=== PATIENT | female | born 1945 | race Caucasian/White ===

== ENCOUNTER 2017-11-12 02:40 | Outpatient (CLI) | payer MEDICARE, OTHER ==
[~2017-11-12 02:40] MED LIST: CHOL2000 PO; DOXA2TAB2 PO; EZET1TAB29 PO; FISH1CAP15 PO; GLYB-97 PO; LACT1CAP65 PO; LANTUS SQ; LEVO100T9 PO; LOSA100T28 PO; METO25TA6 PO; PIOG45TA5 PO; SITA100T15 PO
== END 2017-11-12 23:59 | disposition home or self-care (01) ==
LOC: DIABETIC 02:40
PROVIDERS: ATTEND Specialist
DX: E11.8 Type 2 diabetes mellitus with unspecified complications (principal)

== ENCOUNTER 2018-02-24 00:25 | Outpatient (CLI) | payer MEDICARE, OTHER | END 2018-02-24 23:59 | disposition home or self-care (01) | LOC: DIABETIC 00:25 | PROVIDERS: ATTEND Specialist | DX: E11.9 Type 2 diabetes mellitus without complications (principal); I10 Essential (primary) hypertension; J45.909 Unspecified asthma, uncomplicated | CPT/HCPCS: G0108 ==

== ENCOUNTER 2018-07-14 00:35 | Outpatient (CLI) | payer MEDICARE, OTHER ==
[~2018-07-14 00:35] MED LIST changes: +LOSA100T15 PO; -LOSA100T28 PO
== END 2018-07-14 23:59 | disposition home or self-care (01) ==
LOC: DIABETIC 00:35
PROVIDERS: ATTEND Specialist
DX: E11.9 Type 2 diabetes mellitus without complications (principal); I10 Essential (primary) hypertension; J45.909 Unspecified asthma, uncomplicated; Z79.4 Long term (current) use of insulin; Z79.84 Long term (current) use of oral hypoglycemic drugs; Z79.899 Other long term (current) drug therapy; Z98.51 Tubal ligation status
CPT/HCPCS: G0108

== ENCOUNTER 2018-10-13 00:20 | Outpatient (CLI) | payer MEDICARE, OTHER ==
[~2018-10-13 00:20] MED LIST changes: -LOSA100T15 PO; +LOSA100T57 PO
== END 2018-10-13 23:59 | disposition home or self-care (01) ==
LOC: DIABETIC 00:20
PROVIDERS: ATTEND Specialist
DX: E11.65 Type 2 diabetes mellitus with hyperglycemia (principal); I10 Essential (primary) hypertension; J45.909 Unspecified asthma, uncomplicated; Z79.4 Long term (current) use of insulin; Z79.84 Long term (current) use of oral hypoglycemic drugs
CPT/HCPCS: G0108

== ENCOUNTER 2019-01-06 01:59 | Outpatient (CLI) | payer MEDICARE, OTHER | END 2019-01-06 23:59 | disposition home or self-care (01) | LOC: DIABETIC 01:59 | PROVIDERS: ATTEND Family Medicine | DX: E11.65 Type 2 diabetes mellitus with hyperglycemia (principal); I10 Essential (primary) hypertension; J45.909 Unspecified asthma, uncomplicated; Z79.84 Long term (current) use of oral hypoglycemic drugs | CPT/HCPCS: G0108 ==

== ENCOUNTER 2019-04-07 01:42 | Outpatient (CLI) | payer MEDICARE, OTHER | END 2019-04-07 23:59 | disposition home or self-care (01) | LOC: DIABETIC 01:42 | PROVIDERS: ATTEND Specialist | DX: E11.65 Type 2 diabetes mellitus with hyperglycemia (principal); I10 Essential (primary) hypertension; J45.909 Unspecified asthma, uncomplicated; Z79.4 Long term (current) use of insulin; Z79.899 Other long term (current) drug therapy | CPT/HCPCS: G0108 ==

== ENCOUNTER 2019-07-08 01:45 | Outpatient (CLI) | payer MEDICARE, OTHER | END 2019-07-08 23:59 | disposition home or self-care (01) | LOC: DIABETIC 01:45 | PROVIDERS: ATTEND Specialist | DX: E11.69 Type 2 diabetes mellitus with other specified complication (principal); Z79.84 Long term (current) use of oral hypoglycemic drugs | CPT/HCPCS: G0108 ==

== ENCOUNTER 2020-07-16 07:04 | Emergency (ER) | payer MEDICARE, OTHER ==
[~2020-07-16] VITALS: Ht 175.3 cm; Wt 102.8 kg
[2020-07-16] MEDS ORDERED: cyclobenzaprine 10mg tablet PO ONE (08:15)
[2020-07-16] MEDS ORDERED: CYCL-1 PO (08:16)
[2020-07-16 09:05] VITALS: BP 146/76
== END 2020-07-16 09:15 | disposition home or self-care (01) ==
LOC: ER 07:05
DX: G89.29 Other chronic pain (principal); M54.5 Low back pain; E11.9 Type 2 diabetes mellitus without complications; Z79.4 Long term (current) use of insulin; Z79.899 Other long term (current) drug therapy
CPT/HCPCS: 99283

== ENCOUNTER 2020-08-02 14:05 | Outpatient (CLI) | payer MEDICARE, OTHER ==
[~2020-08-02 14:05] MED LIST changes: +CYCL-1 PO
== END 2020-08-02 23:59 | disposition home or self-care (01) ==
LOC: RAD 14:05
PROVIDERS: ATTEND Family Medicine
DX: K21.9 Gastro-esophageal reflux disease without esophagitis (principal); R13.14 Dysphagia, pharyngoesophageal phase
CPT/HCPCS: 74230

== ENCOUNTER 2020-12-24 08:34 | Emergency (ER) | payer MEDICARE, OTHER ==
[~2020-12-24] VITALS: Ht 175.3 cm; Wt 95.7 kg
[~2020-12-24 08:34] MED LIST changes: +LOP25T PO; -METO25TA6 PO
[2020-12-24 10:33] LABS: BASOPHILS % (AUTO) 0.4 % (0-1); EOSINOPHILS # (AUTO) 0.1 X10'3 (0-0.9); EOSINOPHILS % (AUTO) 1.8 % (0-6); HEMATOCRIT 37.7 % (35.0-45.0); HEMOGLOBIN 12.3 g/dl (12.0-16.0); LYMPHOCYTES % (AUTO) 16.6 % (21-51); MEAN CORPUSCULAR HEMOGLOBIN 29.5 PG (27.0-31.0); MEAN CORPUSCULAR HGB CONC 32.7 g/dL (33.0-36.5); MEAN CORPUSCULAR VOLUME 90.4 FL (78-98); MEAN PLATELET VOLUME 10.8 FL (7.4-10.4); MONOCYTES # (AUTO) 0.4 X10'3 (0-0.9); MONOCYTES % (AUTO) 7.3 % (2-12); NEUTROPHILS # (AUTO) 4.5 X10'3 (1.8-7.7); NEUTROPHILS % (AUTO) 73.9 % (42-75); PLATELET COUNT 143 X10'3 (140-440); RED BLOOD COUNT 4.17 X10'6 (4.20-5.60); RED CELL DISTRIBUTION WIDTH 15.2 % (11.5-14.5)
[2020-12-24 10:51] LABS: ALANINE AMINOTRANSFERASE 19 U/L (12-78); ALBUMIN 3.4 G/DL (3.4-5.0); ALKALINE PHOSPHATASE 66 IU/L (46-116); ANION GAP 9 (8-16); ASPARTATE AMINO TRANSFERASE 26 U/L (10-37); BILIRUBIN,TOTAL 0.4 MG/DL (0.1-1.0); BLOOD UREA NITROGEN 15 MG/DL (7-18); BUN/CREATININE RATIO 20.5 (6.6-38.0); CALCIUM 9.2 MG/DL (8.5-10.1); CHLORIDE 105 MMOL/L (99-107); CREATININE 0.73 MG/DL (0.40-0.90); GLUCOSE 97 MG/DL (70-104); POTASSIUM 3.8 MMOL/L (3.5-5.1); SODIUM 144 MMOL/L (135-145); TOTAL CARBON DIOXIDE 30.4 MMOL/L (24-32); TOTAL PROTEIN 6.7 G/DL (6.4-8.2); eGFR 78 ML/MIN
--- NOTE | 2020-12-24 13:51 | NUR ---
PATIENT SLIGHTLY DIZZY WHEN STANDING UP FROM SITTING AT BEDSIDE, STANDBY ASSIAT: PATIENT AMBULATED ITH CANE: STEADY ON FEET PATIUENT STATSES THAT SHE IS HERE DUE TI RIGHT SIDED NECK PAIN: PAIN INCREASES WITH ALL MOVEMENT OF NECK: LIMITED ROM
--- NOTE | 2020-12-24 13:53 | NUR ---
NOTE: RIGHT LEG SWELLING GREATER THATN LEFT AND IS "NEW" PER PATIENT
[2020-12-24] MEDS ORDERED: acetaminophen 325mg tablet PO ONE (14:00)
[2020-12-24 14:13] LABS: CLARITY,URINE SLIGHTLY CLOUDY (Clear); COLOR,URINE YELLOW (Yellow); GLUCOSE, URINE NEGATIVE (Neg); KETONES,URINE NEGATIVE (Neg); LEUKOCYTE ESTERASE ,URINE SMALL (Neg); NITRITES, URINE NEGATIVE (Neg); OCCULT BLOOD,URINE NEGATIVE (Neg); PH,URINE 7.5 (4.8-8.0); PROTEIN,URINE NEGATIVE (Neg); UROBILINOGEN,URINE 0.2 E.U/dL (0.2-1.0)
[2020-12-24 14:15] LABS: UA COLLECTION TYPE CLN CATCH MIDSTREAM
[2020-12-24 14:19] LABS: SQUAMOUS EPITHELIAL CELL,UR MODERATE /LPF (FEW)
[2020-12-24 14:21] LABS: BACTERIA,URINE 1+ /HPF (Neg); RBC,URINE 0-2 /HPF (0-2); WBC,URINE 0-4 /HPF (0-4)
--- NOTE | 2020-12-24 16:03 | NUR ---
PATIETN AMBNULATED WITH CANE TO BATHROOM TO URINATE: PATIETN REPORTS URINARY FREQUENCY
[2020-12-24 17:05] VITALS: BP 121/65
== END 2020-12-24 17:05 | disposition home or self-care (01) ==
LOC: ER 08:35
DX: R53.1 Weakness (principal); E78.5 Hyperlipidemia, unspecified; R06.02 Shortness of breath; R51.9 Headache, unspecified; R19.7 Diarrhea, unspecified; M79.89 Other specified soft tissue disorders; I10 Essential (primary) hypertension; R53.83 Other fatigue; E78.00 Pure hypercholesterolemia, unspecified; K21.9 Gastro-esophageal reflux disease without esophagitis; E11.9 Type 2 diabetes mellitus without complications; G89.29 Other chronic pain; Z90.89 Acquired absence of other organs; Z79.4 Long term (current) use of insulin; Z79.899 Other long term (current) drug therapy
CPT/HCPCS: 36415; 70450; 71045; 72125; 80053; 81001; 83880; 84484; 85025; 87088; 93005; 99285

== ENCOUNTER 2022-02-10 04:40 | Emergency (ER) | payer MEDICARE, OTHER ==
[~2022-02-10] VITALS: Ht 172.7 cm; Wt 84.1 kg
[2022-02-10 05:14] LABS: CLARITY,URINE CLEAR (Clear); COLOR,URINE YELLOW (Yellow); GLUCOSE, URINE >=1000 mg/dl (Neg); KETONES,URINE 15 mg/dl (Neg); LEUKOCYTE ESTERASE ,URINE NEGATIVE (Neg); NITRITES, URINE NEGATIVE (Neg); OCCULT BLOOD,URINE NEGATIVE (Neg); PROTEIN,URINE NEGATIVE (Neg); UA COLLECTION TYPE OTHER; UROBILINOGEN,URINE 0.2 E.U/dL (0.2-1.0)
[2022-02-10 05:40] LABS: BACTERIA,URINE NONE SEEN /HPF (Neg); MUCUS STRANDS NONE SEEN /LPF (Neg); RBC,URINE 0-2 /HPF (0-2); SQUAMOUS EPITHELIAL CELL,UR FEW /LPF (FEW); WBC,URINE 0-4 /HPF (0-4)
[2022-02-10 06:08] VITALS: BP 125/68
--- NOTE | 2022-02-10 06:08 | NUR ---
CALLED AND LET HIM KNOW PT IS DISCHARGED. HE WILL COME TO DRIVE PT. ETA 20 MINUTES.
--- NOTE | 2022-02-10 06:54 | NUR ---
Pt given and understands d/c instructions. IV d/c'd. Slow steady gait. Left the department with her .
== END 2022-02-10 06:56 | disposition home or self-care (01) ==
LOC: ER 04:40
DX: M54.89 Other dorsalgia (principal); G89.29 Other chronic pain; R25.2 Cramp and spasm; E78.00 Pure hypercholesterolemia, unspecified; I10 Essential (primary) hypertension; K21.9 Gastro-esophageal reflux disease without esophagitis; E11.9 Type 2 diabetes mellitus without complications; Z90.89 Acquired absence of other organs; Z79.4 Long term (current) use of insulin; Z79.899 Other long term (current) drug therapy
CPT/HCPCS: 81001; 99284

== ENCOUNTER 2022-08-10 15:48 | Emergency (ER) | payer MEDICARE, OTHER ==
[~2022-08-10] VITALS: Ht 172.7 cm; Wt 79.0 kg
[2022-08-10 16:12] VITALS: BP 137/77
[2022-08-10] MEDS ORDERED: HYDR-3965 PO (20:43)
[2022-08-10] MEDS ORDERED: morphine 4 MG/ML inj SYRINge IM ONE (21:45)
[2022-08-10] MEDS ORDERED: ondansetron 4mg rapidly disintigrating tab PO ONE (21:45)
== END 2022-08-10 21:55 | disposition home or self-care (01) ==
LOC: ER 15:49
DX: S42.291A Other displaced fracture of upper end of right humerus, initial encounter for closed fracture (principal); E78.00 Pure hypercholesterolemia, unspecified; I10 Essential (primary) hypertension; K21.9 Gastro-esophageal reflux disease without esophagitis; E11.9 Type 2 diabetes mellitus without complications; G89.29 Other chronic pain; M54.50 Low back pain, unspecified; Z98.890 Other specified postprocedural states; W19.XXXA Unspecified fall, initial encounter; Y93.89 Activity, other specified; Y92.89 Other specified places as the place of occurrence of the external cause; Y99.8 Other external cause status
CPT/HCPCS: 73030; 73200; 96372; 99284; J2270; A4565

== ENCOUNTER 2023-11-27 08:38 | Emergency (ER) | payer MEDICARE, OTHER ==
[~2023-11-27] VITALS: Ht 172.7 cm; Wt 82.7 kg
[~2023-11-27 08:38] MED LIST changes: +ATOR20TA PO; -CHOL2000 PO; -CYCL-1 PO; -DOXA2TAB2 PO; +DOXA2TAB46 PO; -EZET1TAB29 PO; -FISH1CAP15 PO; -GLYB-97 PO; +INSU100I27 SQ; +LACT1CAP26 PO; -LACT1CAP65 PO; -LANTUS SQ; -LEVO100T9 PO; +LEVO125T8 PO; -LOP25T PO; -LOSA100T57 PO; +LOSA100T58 PO; -PIOG45TA5 PO; +SEMA0.25 SQ; -SITA100T15 PO
[2023-11-27 09:04] LABS: BASOPHILS # (AUTO) 0.1 X10'3 (0-0.2); BASOPHILS % (AUTO) 0.6 % (0-1); EOSINOPHILS # (AUTO) 0.2 X10'3 (0-0.9); HEMATOCRIT 48.1 % (35.0-45.0); HEMOGLOBIN 15.9 g/dl (12.0-16.0); LYMPHOCYTES # (AUTO) 1.9 X10'3 (1.1-4.8); LYMPHOCYTES % (AUTO) 21.3 % (21-51); MEAN CORPUSCULAR HEMOGLOBIN 29.2 PG (27.0-31.0); MEAN CORPUSCULAR VOLUME 88.4 FL (78-98); MEAN PLATELET VOLUME 9.6 FL (7.4-10.4); MONOCYTES # (AUTO) 0.6 X10'3 (0-0.9); MONOCYTES % (AUTO) 6.9 % (2-12); NEUTROPHILS # (AUTO) 6.2 X10'3 (1.8-7.7); NEUTROPHILS % (AUTO) 69.2 % (42-75); PLATELET COUNT 220 X10'3 (140-440); RED BLOOD COUNT 5.44 X10'6 (4.20-5.60); RED CELL DISTRIBUTION WIDTH 15.1 % (11.5-14.5)
[2023-11-27] MEDS: ondansetron/PF 4mg/2ml inj IV ONE (09:29)
[2023-11-27] MEDS: normal saline 1000ml 1,000 ML IV ONE (09:30)
[2023-11-27 10:27] LABS: ALANINE AMINOTRANSFERASE 21 U/L (12-78); ALBUMIN 3.2 G/DL (3.4-5.0); ALKALINE PHOSPHATASE 75 IU/L (46-116); ANION GAP 8 (8-16); ASPARTATE AMINO TRANSFERASE 17 U/L (10-37); BILIRUBIN,TOTAL 0.8 MG/DL (0.1-1.0); BLOOD UREA NITROGEN 14 MG/DL (7-18); BUN/CREATININE RATIO 23.7 (10.0-20.0); CALCIUM 8.8 MG/DL (8.5-10.1); CHLORIDE 104 MMOL/L (99-107); CREATININE 0.59 MG/DL (0.40-0.90); GLUCOSE 125 MG/DL (70-104); POTASSIUM 3.6 MMOL/L (3.5-5.1); SODIUM 140 MMOL/L (135-145); TOTAL PROTEIN 6.3 G/DL (6.4-8.2); eCRCL 78 ML/MIN; eGFR > 90 ML/MIN
[2023-11-27 10:31] LABS: PRO BRAIN NATRIURETIC PEPTIDE 280 PG/ML (0-450)
[2023-11-27 10:36] LABS: BILIRUBIN,URINE NEGATIVE (Neg); CLARITY,URINE CLEAR (Clear); COLOR,URINE YELLOW (Yellow); GLUCOSE, URINE >=1000 mg/dl (Neg); KETONES,URINE TRACE mg/dl (Neg); LEUKOCYTE ESTERASE ,URINE SMALL (Neg); NITRITES, URINE NEGATIVE (Neg); OCCULT BLOOD,URINE TRACE-INTACT (Neg); PROTEIN,URINE NEGATIVE (Neg); UROBILINOGEN,URINE 0.2 E.U/dL (0.2-1.0)
[2023-11-27 10:38] LABS: UA COLLECTION TYPE CLN CATCH MIDSTREAM
[2023-11-27 10:40] LABS: BILIRUBIN,DIRECT 0.2 MG/DL (0-0.3)
[2023-11-27 10:54] LABS: SQUAMOUS EPITHELIAL CELL,UR MODERATE /LPF (FEW)
[2023-11-27 10:55] LABS: BACTERIA,URINE 1+ /HPF (Neg); TRANSITIONAL EPI CELLS,URINE FEW /HPF; YEAST FEW /HPF (NEGATIVE)
[2023-11-27] MEDS: hydrALAZINE 20mg/ml inj. IV ONE (10:58)
[2023-11-27] MEDS ORDERED: proCHLORperazine 10 MG/2 ml inj IV PRN (11:25)
[2023-11-27] MEDS: dexamethasone sod phosphate 10mg/ml inj IV STA (11:44)
[2023-11-27] MEDS: diphenhydrAMINE 50 mg/ml inj IV ONE (11:44)
[2023-11-27] MEDS: ketorolac trometh. 30mg/ml inj. IV ONE (11:45)
[2023-11-27] MEDS: CefTRIAXone/D5W-Rocephin 1gm 50 ML IV ONE (12:59)
[2023-11-27] MEDS: fluconazole 150mg tablet PO ONE (13:06)
[2023-11-27] MEDS: metoprolol tartrate 1mg/ml inj IV ONE (13:56)
[2023-11-27] MEDS: losartan 50mg tablet PO SCH (13:56)
[2023-11-27 14:04] VITALS: BP 174/100; PULSE 100; RESP 14; TEMP 98; O2SAT 93
[2023-11-27] MEDS ORDERED: NITR100C6 PO (14:36)
== END 2023-11-27 14:59 | disposition home or self-care (01) ==
LOC: ER 08:39
DX: R51.9 Headache, unspecified (principal); I10 Essential (primary) hypertension; N39.0 Urinary tract infection, site not specified; E78.00 Pure hypercholesterolemia, unspecified; K21.9 Gastro-esophageal reflux disease without esophagitis; E11.8 Type 2 diabetes mellitus with unspecified complications; I25.10 Atherosclerotic heart disease of native coronary artery without angina pectoris; Z90.49 Acquired absence of other specified parts of digestive tract; E03.9 Hypothyroidism, unspecified
CPT/HCPCS: 36415; 70450; 71045; 80048; 80076; 81001; 83880; 84484; 85025; 87088; 93005; 96361; 96365; 96375; 99285; J0360; J0696; J1100; J1200; J1885; J2405; J3490; J7030; A4615

== ENCOUNTER 2024-07-23 13:10 | Inpatient (IN) | payer MEDICARE, OTHER ==
[~2024-07-23] VITALS: Ht 172.7 cm; Wt 70.6 kg
[~2024-07-23 13:10] MED LIST changes: +NITR100C6 PO
[2024-07-23] MEDS: acetaminophen 325mg tablet PO ONE (15:09)
[2024-07-23 15:10] LABS: BASOPHILS # (AUTO) 0.1 X10'3 (0-0.2); BASOPHILS % (AUTO) 0.7 % (0-1); EOSINOPHILS # (AUTO) 0.1 X10'3 (0-0.9); EOSINOPHILS % (AUTO) 1.7 % (0-6); HEMOGLOBIN 14.9 g/dl (12.0-16.0); LYMPHOCYTES # (AUTO) 1.8 X10'3 (1.1-4.8); LYMPHOCYTES % (AUTO) 23.8 % (21-51); MEAN CORPUSCULAR HEMOGLOBIN 30.7 PG (27.0-31.0); MEAN CORPUSCULAR HGB CONC 33.9 g/dL (33.0-36.5); MEAN CORPUSCULAR VOLUME 90.6 FL (78-98); MEAN PLATELET VOLUME 9.5 FL (7.4-10.4); MONOCYTES # (AUTO) 0.6 X10'3 (0-0.9); MONOCYTES % (AUTO) 8.1 % (2-12); NEUTROPHILS % (AUTO) 65.7 % (42-75); PLATELET COUNT 195 X10'3 (140-440); RED BLOOD COUNT 4.85 X10'6 (4.20-5.60); RED CELL DISTRIBUTION WIDTH 14.7 % (11.5-14.5); WHITE BLOOD COUNT 7.6 X10'3 (4.5-11.0)
[2024-07-23 15:22] LABS: APTT 25 SECONDS (22-32); INR 1.1 INR; PROTHROMBIN TIME 11.7 SECONDS (9.0-12.0)
[2024-07-23 15:25] LABS: ALANINE AMINOTRANSFERASE 28 U/L (12-78); ALBUMIN 3.5 G/DL (3.4-5.0); ALBUMIN/GLOBULIN RATIO 1.2 (1.1-1.5); ALKALINE PHOSPHATASE 70 IU/L (46-116); ANION GAP 6 (8-16); ASPARTATE AMINO TRANSFERASE 20 U/L (10-37); BILIRUBIN,TOTAL 0.8 MG/DL (0.1-1.0); BLOOD UREA NITROGEN 21 MG/DL (7-18); BUN/CREATININE RATIO 25.3 (10.0-20.0); CALCIUM 9.3 MG/DL (8.5-10.1); CHLORIDE 106 MMOL/L (99-107); CREATININE 0.83 MG/DL (0.40-0.90); GLUCOSE 108 MG/DL (70-104); POTASSIUM 3.8 MMOL/L (3.5-5.1); SODIUM 142 MMOL/L (135-145); TOTAL CARBON DIOXIDE 30.4 MMOL/L (24-32); TOTAL PROTEIN 6.5 G/DL (6.4-8.2); eCRCL 55 ML/MIN; eGFR 66 ML/MIN
[2024-07-23 15:32] LABS: MAGNESIUM 1.9 MG/DL (1.5-2.4)
[2024-07-23 15:53] LABS: BILIRUBIN,URINE NEGATIVE (Neg); CLARITY,URINE SLIGHTLY CLOUDY (Clear); COLOR,URINE YELLOW (Yellow); GLUCOSE, URINE NEGATIVE (Neg); KETONES,URINE NEGATIVE (Neg); LEUKOCYTE ESTERASE ,URINE SMALL (Neg); NITRITES, URINE POSITIVE (Neg); OCCULT BLOOD,URINE NEGATIVE (Neg); PROTEIN,URINE NEGATIVE (Neg); UROBILINOGEN,URINE 0.2 E.U/dL (0.2-1.0)
[2024-07-23 15:58] LABS: UA COLLECTION TYPE CLN CATCH MIDSTREAM
[2024-07-23 15:59] LABS: BACTERIA,URINE 2+ /HPF (Neg); MUCUS STRANDS NONE SEEN /LPF (Neg); RBC,URINE NONE SEEN /HPF (0-2); SQUAMOUS EPITHELIAL CELL,UR MODERATE /LPF (FEW); TRANSITIONAL EPI CELLS,URINE FEW /HPF
[2024-07-23] MEDS: normal saline 1000ML IV soln IVB ONE (17:30)
[2024-07-23] MEDS: CefTRIAXone/D5W-Rocephin 1gm 50 ML IV STA (17:30)
[2024-07-23] MEDS ORDERED: potassium Cl 40MEQ/1/2NS 520ml 520 ML IV PRN (20:05)
[2024-07-23] MEDS ORDERED: potassium Cl 20 mEq SR tablet PO PRN ×2 (20:05)
[2024-07-23] MEDS ORDERED: mag hydrox/Alum hydrox/simeth 30ml oral suspension PO PRN (20:05)
[2024-07-23] MEDS ORDERED: acetaminophen 325mg tablet PO PRN ×2 (20:05)
[2024-07-23] MEDS ORDERED: magnesium Cl slow-release 64mg tablet PO PRN (20:05)
[2024-07-23] MEDS ORDERED: ondansetron/PF 4mg/2ml inj IV PRN (20:05)
[2024-07-23] MEDS ORDERED: HYDROcodone/acetaminophen 10/325mg tab PO PRN (20:05)
[2024-07-23] MEDS ORDERED: HYDROcodone/acetaminophen 5mg/325mg tablet PO PRN (20:05)
[2024-07-23] MEDS ORDERED: magnesium sulf-water 2g/50mL 50 ML IV PRN (20:05)
[2024-07-23] MEDS ORDERED: magnesium sulf-water 4G/100mL 100 ML IV PRN (20:05)
[2024-07-23] MEDS: cyclobenzaprine 10mg tablet PO ONE (20:42)
[2024-07-23] MEDS: normal saline 1000ml 1,000 ML IV SCH (20:42)
[2024-07-23] MEDS ORDERED: temazepam 15mg capsule PO PRN (21:00)
[2024-07-23] MEDS ORDERED: DEXTROSE 15 GM of carb/4 tabs (each vial/BOTTLE has 4 tablets) PO PRN ×2 (22:15)
[2024-07-23] MEDS ORDERED: dextrose 50%-water 50ml dispensing syringe IV PRN ×2 (22:15)
[2024-07-23] MEDS ORDERED: glucagon, human recombinant 1mg kit SUBCUT PRN (22:15)
[2024-07-23 22:30] VITALS: BP 174/97; PULSE 89; RESP 16; TEMP 97.7; O2SAT 94
[2024-07-23 22:46] LABS: HEMOGLOBIN A1C 7.3 % (4.5-6.2)
[2024-07-23] MEDS: metoprolol tartrate 12.5mg (1/2 tablet) PO ONE (23:44)
[2024-07-24] VITALS (11 sets, daily range): BP systolic 126–167; BP diastolic 87–110; PULSE 89–119; RESP 12–20; TEMP 97.7–98.3; O2SAT 94–97
[2024-07-24] MEDS: INSULIN LISPRO 100 UNIT/ML INSULN.PEN MULTI-DOSE SQ SCH ×2 (07:00→09:00)
[2024-07-24 07:32] LABS: BASOPHILS # (AUTO) 0.1 X10'3 (0-0.2); EOSINOPHILS # (AUTO) 0.2 X10'3 (0-0.9); EOSINOPHILS % (AUTO) 3.7 % (0-6); HEMATOCRIT 42.6 % (35.0-45.0); HEMOGLOBIN 14.5 g/dl (12.0-16.0); LYMPHOCYTES # (AUTO) 1.7 X10'3 (1.1-4.8); LYMPHOCYTES % (AUTO) 28.7 % (21-51); MEAN CORPUSCULAR HEMOGLOBIN 30.7 PG (27.0-31.0); MEAN CORPUSCULAR VOLUME 90.3 FL (78-98); MEAN PLATELET VOLUME 9.8 FL (7.4-10.4); MONOCYTES # (AUTO) 0.6 X10'3 (0-0.9); MONOCYTES % (AUTO) 9.3 % (2-12); NEUTROPHILS # (AUTO) 3.4 X10'3 (1.8-7.7); NEUTROPHILS % (AUTO) 57.3 % (42-75); PLATELET COUNT 180 X10'3 (140-440); RED BLOOD COUNT 4.71 X10'6 (4.20-5.60); RED CELL DISTRIBUTION WIDTH 14.8 % (11.5-14.5); WHITE BLOOD COUNT 5.9 X10'3 (4.5-11.0)
[2024-07-24 07:39] LABS: INR 1.2 INR
[2024-07-24 07:46] LABS: ALBUMIN 3.1 G/DL (3.4-5.0); ANION GAP 4 (8-16); BLOOD UREA NITROGEN 15 MG/DL (7-18); BUN/CREATININE RATIO 18.8 (10.0-20.0); CALCIUM 8.8 MG/DL (8.5-10.1); CHLORIDE 107 MMOL/L (99-107); GLUCOSE 68 MG/DL (70-104); MAGNESIUM 1.7 MG/DL (1.5-2.4); POTASSIUM 3.5 MMOL/L (3.5-5.1); SODIUM 143 MMOL/L (135-145); TOTAL CARBON DIOXIDE 32.2 MMOL/L (24-32); eCRCL 58 ML/MIN; eGFR 69 ML/MIN
[2024-07-24] MEDS: enoxaparin 40mg/0.4ml syringe SUBCUT SCH (08:07)
[2024-07-24] MEDS: K and/or MAG REPLACEMENT MC SCH (08:40)
[2024-07-24] MEDS: losartan 50mg tablet PO ONE (10:41)
[2024-07-24] MEDS ORDERED: GADOTERATE MEGLUMINE 7.5 MMOL/15 ML VIAL IV ONE (16:01)
[2024-07-24] MEDS: CefTRIAXone/D5W-Rocephin 1gm 50 ML IV SCH (16:09)
[2024-07-24] MEDS: metoprolol succinate 25mg (24-HOUR) SR. Tablet PO ONE (16:42)
[2024-07-24 16:55] LABS: FREE T4 (FREE THYROXINE) 1.23 NG/DL (0.73-1.40); THYROID STIMULATING HORMONE 1.23 ulU/ml (0.34-4.50)
[2024-07-24] MEDS ORDERED: cyclobenzaprine 10mg tablet PO PRN (20:00)
[2024-07-24] MEDS: insulin glargine (Lantus) pen - multi-dose SQ SCH (21:51)
[2024-07-25 06:00] VITALS: BP 140/82; PULSE 78; RESP 18; TEMP 97.6; O2SAT 92
[2024-07-25 08:13] VITALS: BP_SYST 136; BP_SYST 140; BP_SYST 147; BP_DIAS 82; BP_DIAS 85; BP_DIAS 90; PULSE 105; PULSE 78; PULSE 95; RESP 18; O2SAT 92
[2024-07-25] MEDS: losartan 50mg tablet PO SCH (08:13)
[2024-07-25] MEDS: atorvastatin 20mg tablet PO SCH (08:14)
[2024-07-25] MEDS: metoprolol succinate 25mg (24-HOUR) SR. Tablet PO SCH (08:15)
[2024-07-25 08:27] LABS: BASOPHILS # (AUTO) 0.1 X10'3 (0-0.2); BASOPHILS % (AUTO) 0.8 % (0-1); EOSINOPHILS # (AUTO) 0.4 X10'3 (0-0.9); EOSINOPHILS % (AUTO) 5.5 % (0-6); HEMATOCRIT 41.6 % (35.0-45.0); HEMOGLOBIN 14.2 g/dl (12.0-16.0); LYMPHOCYTES # (AUTO) 1.7 X10'3 (1.1-4.8); LYMPHOCYTES % (AUTO) 26.2 % (21-51); MEAN CORPUSCULAR HEMOGLOBIN 30.7 PG (27.0-31.0); MEAN CORPUSCULAR HGB CONC 34.2 g/dL (33.0-36.5); MEAN CORPUSCULAR VOLUME 89.8 FL (78-98); MEAN PLATELET VOLUME 10.1 FL (7.4-10.4); MONOCYTES # (AUTO) 0.6 X10'3 (0-0.9); MONOCYTES % (AUTO) 9.7 % (2-12); NEUTROPHILS # (AUTO) 3.9 X10'3 (1.8-7.7); NEUTROPHILS % (AUTO) 57.8 % (42-75); PLATELET COUNT 172 X10'3 (140-440); RED BLOOD COUNT 4.64 X10'6 (4.20-5.60); RED CELL DISTRIBUTION WIDTH 14.5 % (11.5-14.5); WHITE BLOOD COUNT 6.7 X10'3 (4.5-11.0)
[2024-07-25 08:43] LABS: ALBUMIN 2.9 G/DL (3.4-5.0); ANION GAP 3 (8-16); BLOOD UREA NITROGEN 19 MG/DL (7-18); BUN/CREATININE RATIO 23.2 (10.0-20.0); CALCIUM 9.1 MG/DL (8.5-10.1); CHLORIDE 106 MMOL/L (99-107); CREATININE 0.82 MG/DL (0.40-0.90); GLUCOSE 136 MG/DL (70-104); MAGNESIUM 1.7 MG/DL (1.5-2.4); PHOSPHORUS 3.5 MG/DL (2.3-4.5); POTASSIUM 3.8 MMOL/L (3.5-5.1); SODIUM 140 MMOL/L (135-145); TOTAL CARBON DIOXIDE 31.2 MMOL/L (24-32); eCRCL 56 ML/MIN; eGFR 67 ML/MIN
[2024-07-25 10:51] VITALS: BP 127/65; PULSE 95; RESP 18; TEMP 97.4; O2SAT 94
[2024-07-25 10:53] VITALS: RESP 18; O2SAT 92
[2024-07-25] MEDS ORDERED: METO-384 PO (11:22)
== END 2024-07-25 14:11 | disposition home or self-care (01) | DRG 689 ==
LOC: ER 13:10 → ED HOLD 21:19 → ORTHO 4S 22:29
PROVIDERS: ADMIT Internal Medicine Critical Care Medicine; ATTEND Family Medicine
DX: N30.00 Acute cystitis without hematuria (principal); G93.41 Metabolic encephalopathy; M62.830 Muscle spasm of back; E11.65 Type 2 diabetes mellitus with hyperglycemia; H11.31 Conjunctival hemorrhage, right eye; I25.10 Atherosclerotic heart disease of native coronary artery without angina pectoris; I10 Essential (primary) hypertension; K21.9 Gastro-esophageal reflux disease without esophagitis; G89.29 Other chronic pain; R00.0 Tachycardia, unspecified; E03.9 Hypothyroidism, unspecified; Z79.4 Long term (current) use of insulin; E78.00 Pure hypercholesterolemia, unspecified; Z79.84 Long term (current) use of oral hypoglycemic drugs; Z90.49 Acquired absence of other specified parts of digestive tract; T42.8X5A Adverse effect of antiparkinsonism drugs and other central muscle-tone depressants, initial encounter; Y92.89 Other specified places as the place of occurrence of the external cause; M19.09 Primary osteoarthritis, other specified site
CPT/HCPCS: 36415; 70450; 70553; 72110; 76770; 80048; 80053; 81001; 82948; 83036; 83605; 83735; 84100; 84145; 84439; 84443; 84484; 85025; 85610; 85730; 87040; 87081; 87088; 93005; 93306; 97116; 97161; 97530; 99285; A4615; A9575; G0378; J0696; J1650; J1815; J7030